=== PATIENT | female | born 1995 | race Caucasian/White ===

== ENCOUNTER → 2022-09-01 | Outpatient (REF) | LOC: M EMP 07:44 | PROVIDERS: ATTEND Family Medicine | DX: Z11.52 Encounter for screening for COVID-19 (principal) ==

== ENCOUNTER → 2025-01-16 | Outpatient (REF) | payer OTHER ==
[~2025-01-16] MED LIST: FERR325T3 PO; PRENTAB9 PO
[2025-01-16 19:21] LABS: Trichomonas vaginalis (AMP) NOT DETECTED (NEGATIVE)
[2025-01-16 19:45] LABS: GC DNA AMPLIFICATION NEGATIVE (NEGATIVE)
[2025-01-18 18:27] LABS: HPV APTIMA Not Detected (Not Detected)
== END ==
LOC: M SFHCWAGY 16:55
PROVIDERS: ATTEND Nurse Practitioner Family
DX: R87.612 Low grade squamous intraepithelial lesion on cytologic smear of cervix (LGSIL) (principal); Z12.4 Encounter for screening for malignant neoplasm of cervix; Z11.3 Encounter for screening for infections with a predominantly sexual mode of transmission; B97.7 Papillomavirus as the cause of diseases classified elsewhere